=== PATIENT | male | born 1965 | race American Indian/Alaskan Native ===

== ENCOUNTER 2016-12-01 03:23 | Emergency (ER) | payer MEDICARE ==
[2016-12-01] MEDS ORDERED: DUONEB 0.5 MG-3 MG/3 ML SOLN IH ONE (03:38)
[2016-12-01] MEDS ORDERED: PROVENTIL IH ONE (03:41)
[2016-12-01] MEDS ORDERED: ATROVENT IH ONE (03:41)
--- NOTE | 2016-12-01 03:54 | Emergency Department Report ---
HPI - General Chief Complaint: Adult Asthma Time Seen by Provider: 12/01/16 03:41 - HPI HPI: Patient here reported that he has asthma attack at home and stated that he was 5 mg albuterol treatment 3 at home plus is inhaler and it didn't relieve his asthma. She reports shortness of breath but denies any chest pain. Denies any fever or chills. Patient with adult onset asthma and he is been in emergency room in the past for asthma attack. He said he has been intubated twice in the past which was several years ago. Medical history of asthma. ED Past Medical Hx - Past Medical History Previous Medical History?: Yes Hx Asthma: Yes - Surgical History Past Surgical History?: Yes Additional Surgical History: L. knee, spinal surgery, nasal surgery, R. shoulder surgery - Family History Family history: hypertension - Social History Smoking Status: Never Smoker Substance Use Type: Alcohol ED Review of Systems ROS: Stated complaint: ASTHMA Other details as noted in HPI Comment: All other systems reviewed and negative Constitutional: denies: chills, fever Eyes: denies: eye discharge ENT: denies: ear pain, throat pain Respiratory: cough, shortness of breath, SOB with exertion, wheezing. denies: orthopnea, SOB at rest, stridor Cardiovascular: denies: chest pain, palpitations, edema, syncope Gastrointestinal: denies: abdominal pain, nausea, vomiting Musculoskeletal: denies: back pain, arthralgia Skin: denies: rash Neurological: denies: headache Physical Exam - Physical Exam Vital Signs: Vital Signs 12/01/16 03:29 Temperature 98.2 F Pulse Rate 104 H Respiratory 22 Rate Blood Pressure 149/86 O2 Sat by Pulse 93 Oximetry General: This is a 51-year-old male well-nourished well-developed in no acute distress. Physical Exam: Head: Normocephalic atraumatic Mouth: Moist, no pharyngeal exudate or erythema. Uvula is midline and oral airway is patent. No gingival enlargement or dental tenderness. No facial swelling. No peritonsillar abscesses. Neck: Supple, no C-spine tenderness, no tracheal deviation. Nontender to palpate. no adenopathy Ears: Bilateral TMs pearly farmer.bilateral EAC without any redness swelling or drainage Eyes: Bilateral pupils equal and reactive to light, bilateral EOM intact. Bilateral sclera and conjunctiva without injection. Normal accommodation Nose: Mucosa moist, positive congestion no erythema. maxillary and frontal sinus non-tender to palpate. Lungs: Patient will wheezing throughout lung langley. Dry cough. Mild increased work of breathing extremity; No CCE. +2 pulses. No neurovascular compromise Cardiovascular: S1-S2, mild tachycardia 106. regular rhythm. No murmurs. Skin: clean Dry and intact no rash no lesions Psych: Normal mood and behavior ED Course Vital Signs 12/01/16 03:29 Temperature 98.2 F Pulse Rate 104 H Respiratory 22 Rate Blood Pressure 149/86 O2 Sat by Pulse 93 Oximetry Vital Signs 12/01/16 12/01/16 12/01/16 03:29 03:47 04:59 Temperature 98.2 F Pulse Rate 104 H Pulse Rate [ 104 H 94 H Bilateral Throughout] Respiratory 22 Rate Respiratory 20 20 Rate [Bilateral Throughout] Blood Pressure 149/86 O2 Sat by Pulse 93 Oximetry Vital Signs 12/01/16 12/01/16 12/01/16 03:29 03:47 04:59 Temperature 98.2 F Pulse Rate 104 H Pulse Rate [ 104 H 94 H Bilateral Throughout] Respiratory 22 Rate Respiratory 20 20 Rate [Bilateral Throughout] Blood Pressure 149/86 Blood Pressure [Right] O2 Sat by Pulse 93 Oximetry 12/01/16 05:32 Temperature 97.9 F Pulse Rate 92 H Pulse Rate [ Bilateral Throughout] Respiratory 18 Rate Respiratory Rate [Bilateral Throughout] Blood Pressure Blood Pressure 140/88 [Right] O2 Sat by Pulse 92 Oximetry - Reevaluation(s) Reevaluation #1: 12/01/16 04:01 Patient currently getting nebulizer treatments and INT started and patient received Solu-Medrol 125 mg IV. Reevaluation #2: 12/01/16 04:53 Patient stable and remains on nebulizer treatment. Reevaluation #3: 12/01/16 05:16 Patient oxygenation at 92 at rest and 90 with ambulating. Patient said he feels better after treatment. He does not have any wheezing but he has diminished air entry throughout lung langley. I collaborated with Dr. Bass regarding the patient's situation and decision was made to admit patient with patient at this point is refusing to be admitted because he has to go back to [place]. Myself and Dr. Bass spoke with patient and he is now speaking with his sibling and will let us know if he's going to stay. Patient placed on 2 L nasal cannula of oxygen in the meantime 12/01/16 05:18 Reevaluation #4: 12/01/16 05:29 Patient after talking with her sister decided that he wants to go home and he will go to Hospital when you get home to [place]. He will be signing out AMA. ED Medical Decision Making - Medical Decision Making ED course: Patient here for acute asthma exacerbation. Patient was given albuterol 10 mg with Atrovent 0.5 mg for 1 hour. He was also given Solu-Medrol 125 mg IV. Upon reevaluation, patient has no wheezing. A/E diminished throughout all lung langley. Patient O2 sat upon arrival was 93% on room air and after nebulizer treatment is said is at 92% and goes down to 90% with ambulating. I spoke with Dr. Ryan regarding patient presentation, physical findings and treatment given. Given the fact that patient is still hypoxic and his deoxygenation with ambulation it was decided that he needs to be admitted For further workup. This was discussed at length with patient by myself and Dr. Aquino. Patient refuses to be admitted and said that he has to get home to [place] he is traveling with his family. Dr. Aquino explained to patient that he needs to stay in the hospital so he can do further diagnostics testing such as CT scanning of his chest to rule out pulmonary embolism and other lab work and diagnostic tests to rule out congestive heart failure and reason for his continued hypoxia even though he is feeling better after nebulizer treatment. He spoke with his family at length and decided that he wants to go home. Patient signed out AMA witness by myself and Dr. Aquino. Patient was instructed that if he developed any wheezing and difficulty breathing he didn't return to the ED [facility]. I told them when he gets home he didn't to go to the emergency room for further evaluation. He reports that he well. Critical care attestation.: If time is entered above; I have spent that time in minutes in the direct care of this critically ill patient, excluding procedure time. ED Disposition Clinical Impression: Hypoxia Asthma exacerbation attacks Qualifiers: Asthma severity: unspecified severity Qualified Code(s): J45.901 - Unspecified asthma with (acute) exacerbation Disposition: LEFT AGAINST MEDICAL ADVICE Is pt being admited?: No Does the pt Need Aspirin: No Condition: Stable Instructions: Asthma (ED) Forms: AMA Form
[2016-12-01 05:34] VITALS: BP 140/88
== END 2016-12-01 05:43 | disposition left against medical advice (07) ==
LOC: ED 03:23
DX: J45.901 Unspecified asthma with (acute) exacerbation (principal); R09.02 Hypoxemia
CPT/HCPCS: 94644; 96374; 99283; J2930